=== PATIENT | female | born 1950 | race Caucasian/White ===

== ENCOUNTER 2017-02-28 17:00 | Emergency (ER) | payer MEDICARE ==
[~2017-02-28] VITALS: Ht 167.6 cm; Wt 88.0 kg
[2017-02-28 17:06] VITALS: BP 212/95; PULSE 77; RESP 16; TEMP 97.8; O2SAT 96
[2017-02-28] MEDS ORDERED: LEVO137T2 PO (17:31)
[2017-02-28 17:34] VITALS: BP 164/93; PULSE 77; RESP 16; O2SAT 96
[2017-02-28] MEDS ORDERED: CEPHALEXIN MONOHYDRATE 500 MG CAP PO ONE (17:45)
[2017-02-28] MEDS ORDERED: predniSONE 20 MG TAB PO ONE (17:45)
[2017-02-28] MEDS ORDERED: PRED-503 PO (17:53)
[2017-02-28] MEDS ORDERED: CEPH-460 PO (17:53)
--- NOTE | 2017-02-28 17:53 | PD ---
HPI Chief Complaint: Bite or Sting Time Seen by Provider: 17:42 Travel History International Travel<30 days: No Contact w/Intl Traveler<30days: No Traveled to known affect area: No History of Present Illness HPI 67-year-old woman presents to the emergency department complaining of ant bites. States about 8 days ago she stepped into a fire ant hill and got bit all over her legs. She is very allergic to previous bites in the past from other insects but didn't know about insect bites. She's been taking any antihistamines distal having worsening pain redness and swelling especially in her right leg which It more. No fevers or chills. No other complaints. History Past Medical History Narrative Medical Hypothyroidism Tetanus Vaccination: > 5 Years Influenza Vaccination: Yes Menopausal: Yes Social History Alcohol Use: Yes (occas. mix drinks or beer) Tobacco Use: No Allergies-Medications (Allergen,Severity, Reaction): Coded Allergies: aspirin (Verified Allergy, Severe, Anaphylaxis, 02/28/17) codeine (Verified Allergy, Intermediate, rash, 02/28/17) Reported Meds & Prescriptions Reported Meds & Active Scripts Active Reported Levothyroxine (Levothyroxine Sodium) 137 Mcg Tab 137 Mcg PO DAILY Review of Systems Except as stated in HPI: all other systems reviewed are Neg Physical Exam Narrative GENERAL: 67-year-old woman no acute distress. SKIN: Warm and dry. CARDIOVASCULAR: Warm and well perfused. RESPIRATORY: Normal rate and effort. MUSCULOSKELETAL: Ant bites bilateral lower extremities. More in the right. Erythema redness and warmth about the Achilles tendon on the right over the dorsum of the foot with some visible swelling. NEUROLOGICAL: Awake and alert. No gross deficits. Data Data Last Documented VS Vital Signs Date Time Temp Pulse Resp B/P (MAP) Pulse Ox O2 Delivery O2 Flow Rate FiO2 02/28/17 17:34 77 16 164/93 (116) 96 Room Air 02/28/17 17:06 97.8 Orders Orders Cephalexin (Keflex) (02/28/17 17:45) Prednisone (Deltasone) (02/28/17 17:45) MDM Medical Decision Making Medical Screen Exam Complete: Yes Emergency Medical Condition: Yes Differential Diagnosis Cellulitis, local reaction to ant bites, Narrative Course Medical decision making This is a 67-year-old woman who presents to the emergency department with worsening pain redness and swelling from and bite 8 days ago. She likely is a secondary bacterial cellulitis in her right foot. Local reaction also possible. We'll recommend antibiotics and steroids. Elevate the legs. Outpatient follow-up. Diagnosis Primary Impression: Fire ant bite Patient Instructions: General Instructions Additional Instructions: Take prednisone as prescribed. Take Keflex as prescribed. Keep her legs elevated as much as possible. Return to the emergency department for any new or worsening symptoms. Med/Other Pt SpecificInfo: Prescription(s) given Scripts Prednisone (Deltasone) 20 Mg Tab 20 MG PO BID for 3 Days, #6 TAB 0 Refills Prov: Eleazar Vitale MD 02/28/17 Cephalexin (Keflex) 500 Mg Cap 500 MG PO Q8H for Infection for 7 Days, #21 CAP 0 Refills Prov: Eleazar Vitale MD 02/28/17 Disposition: 01 DISCHARGE HOME Condition: Stable Eleazar Vitale MD Feb 28, 2017 17:53
== END 2017-02-28 18:24 | disposition home or self-care (01) ==
LOC: PHED 17:00
DX: S80.861A Insect bite (nonvenomous), right lower leg, initial encounter (principal); W57.XXXA Bitten or stung by nonvenomous insect and other nonvenomous arthropods, initial encounter; E03.9 Hypothyroidism, unspecified
CPT/HCPCS: 99284; J7512